=== PATIENT | male | born 1980 | race African-American/Black ===

== ENCOUNTER 2017-03-25 21:42 | Emergency (ER) | payer SELFPAY ==
[~2017-03-25] VITALS: Ht 177.8 cm; Wt 87.5 kg
[2017-03-25 21:47] VITALS: BP 126/81
== END 2017-03-25 22:35 | disposition home or self-care (01) ==
LOC: ED 22:00
DX: K04.7 Periapical abscess without sinus (principal); J02.9 Acute pharyngitis, unspecified
CPT/HCPCS: 99283